=== PATIENT | male | born 1950 | race Caucasian/White ===

== ENCOUNTER 2018-05-07 22:55 | Emergency (ER) | payer OTHER ==
[2018-05-07 23:27] VITALS: TEMP 97.6; BMI 23.3
--- NOTE | 2018-05-07 23:43 | PDOC ---
History of Present Illness - General Chief Complaint: CVA/TIA Stated Complaint: INTOXICATION Time Seen by Provider: 05/07/18 23:43 - History of Present Illness Initial Comments: 67 year old male with history of depression and essential tremor presenting with slurred speech after a few glasses of wine and 8 ounces of alexander. However patient's is concerned that his speech was slurred to a point that she hasn 't seen before and was worried that he was having a stroke. His last known normal was 22:00 on 05/07 and a code dewey was called when he came in. NIH stroke scale of 1 because of slurred speech. Patient denied any recent fevers, chills, nausea, vomiting, diarrhea, or other symptoms. He has no cardiac history or history of blood clots. 05/08/18 00:26 NIH Stroke Scale - Last Known Well Date/Time & Onset Date Last Known Well: 05/07/18 Time Last Known Well: 21:59 - Initial Evaluation Level of consciousness: Alert Ask patient the month and their age: Answers both correctly Ask patient to open & close eyes; make fist and let go: Obeys both correctly Best gaze (horizontal eye movement): Normal Visual field testing: No visual field loss Facial paresis (Show teeth/raise eyebrows/close eyes tight): Normal symmetrical movement Motor Function: Left Arm: Normal Motor Function: Right Arm: Normal (extends arm 90 (or 45) degrees for 10 seconds without drift Motor Function: Left Leg: Normal (extends leg 30 degrees for 5 seconds without drift) Motor Function: Right Leg: Normal (extends leg 30 degrees for 5 seconds without drift) Limb Ataxia: No ataxia Sensory(Use pinprick test arms,legs,trunk,face/side to side): Normal Best language (Describe picture, name items, read sentences): No Aphasia Dysarthria (read several words): Mild to moderate slurring of words Extinction and Inattention: No abnormality - Total Score NIH Stroke Scale Score: 1 Past History - Past Medical History Allergies/Adverse Reactions: Allergies Allergy/AdvReac Type Severity Reaction Status Date / Time No Known Allergies Allergy Verified 05/08/18 00:42 Home Medications: Ambulatory Orders Escitalopram Oxalate [Lexapro -] 10 mg PO DAILY 05/08/18 Gabapentin 600 mg PO DAILY 05/08/18 Cardiac Disorders: No CVA: No COPD: No DVT: No Dementia: No - Surgical History Gastric Stapling: No - Suicide/Smoking/Psychosocial Hx Smoking History: Never smoked Hx Alcohol Use: Yes Drug/Substance Use Hx: No Substance Use Type: Alcohol Review of Systems - Review of Systems Constitutional: No: Chills, Diaphoresis, Fever, Loss of Appetite HEENTM: No: Eye Pain, Blurred Vision, Tearing Respiratory: No: Cough, Orthopnea, Shortness of Breath Cardiac (ROS): No: Chest Pain, Edema, Irregular Heart Rate ABD/GI: No: Constipated, Diarrhea, Nausea, Poor Appetite, Vomiting : No: Burning, Dysuria, Discharge Musculoskeletal: No: Back Pain, Gout, Joint Pain Integumentary: No: Lesions, Lumps, Pallor Neurological: Yes: Tremors. No: Headache, Numbness, Tingling, Weakness Psychiatric: Yes: Depression. No: Anxiety Hematologic/Lymphatic: No: Anemia, Blood Clots, Easy Bleeding *Physical Exam - Vital Signs Last Vital Signs Temp Pulse Resp BP Pulse Ox 97.6 F 57 L 20 135/80 95 05/07/18 23:19 05/07/18 23:19 05/07/18 23:19 05/07/18 23:19 05/07/18 23:19 - Physical Exam General Appearance: Yes: Nourished, Appropriately Dressed, Intoxicated. No: Apparent Distress HEENT: positive: EOMI, MELANIE, Normal ENT Inspection. negative: Normal Voice ( slightyl slurred speech) Neck: positive: Trachea midline, Normal Thyroid, Supple. negative: Tender, Rigid Respiratory/Chest: positive: Lungs Clear, Normal Breath Sounds. negative: Chest Tender, Respiratory Distress, Accessory Muscle Use Cardiovascular: positive: Regular Rhythm, Regular Rate Gastrointestinal/Abdominal: positive: Normal Bowel Sounds, Flat, Soft. negative : Tender Lymphatic: negative: Adenopathy Musculoskeletal: positive: Normal Inspection. negative: CVA Tenderness Extremity: positive: Normal Capillary Refill, Normal Inspection, Normal Range of Motion. negative: Tender Integumentary: positive: Normal Color, Dry, Warm Neurologic: positive: stator tester II-XII NML intact, Fully Oriented, Alert, Normal Mood/ Affect, Normal Response, Motor Strength 5/5 ED Treatment Course - LABORATORY CBC & Chemistry Diagram: 05/08/18 00:26 05/08/18 00:26 Medical Decision Making - Medical Decision Making 67 year male with slurred speech and NIHSS 1. Head Ct negative and labs demonstrating intoxication with EToh level of 170. Patient given I l NS and eventually sobered after a few hours of observation. DC'd to care of with strict return precautions and follow up instructions. 05/08/18 07:24 *DC/Admit/Observation/Transfer Diagnosis at time of Disposition: Slurred speech, Intoxication - Discharge Dispostion Disposition: HOME Condition at time of disposition: Improved Decision to Admit order: No - Referrals Referrals: Walter Gonzalez [Primary Care Provider] - - Patient Instructions Printed Discharge Instructions: DI for Alcohol Abuse Additional Instructions: Please avoid alcohol with your antidepressants. Please follow up with your primary care physician within 2-3 days. Please return to our ED if you begin to slur your speech again, have any weakness in any of your limbs, have any numbness or tingling in your arms or legs or any other symptoms. - Post Discharge Activity
--- NOTE | 2018-05-07 23:49 | PDOC ---
Attending Attestation - Resident Resident Name: Deuce Quiñonez - ED Attending Attestation I have performed the following: I have examined & evaluated the patient, The case was reviewed & discussed with the resident, I agree w/resident's findings & plan - HPI HPI: 05/08/18 00:31 Pt is depressed; long hx of depression - he is in therapy and has physicains and he has been afraid to sleep, and mikayla by drinking before bedtime. recenly he has been making an effort to cut back drinking. Today he rebounded and drank more than usual. noted that he was slurring speech and he had unsteady gait and she called 911. - Physicial Exam PE: 05/08/18 00:32 Neuro exam shows only slurred speech. Pt follws commands and all else normal. He has downward babinskis. Reflexes depressed but equal throughout. 05/08/18 00:33 Agree with resident exam. - Medical Decision Making 05/08/18 00:33 CT labs; alcohol level. 05/08/18 01:22 EXAM: CT HEAD CT (STROKE) HISTORY: Stroke COMPARISON: None. FINDINGS: Brain parenchyma is normal in attenuation with no mass or hematoma. There is no midline shift. Garrett and white matter differentiation is normal. Ventricles are normal. Sulci and extra-axial CSF spaces are normal. Intracranial vascular structures are normal in attenuation. There is no calvarial fracture. Paranasal sinuses are normally aerated. IMPRESSION: Normal head Individualized dose optimization techniques were used for this CT. THIS DOCUMENT HAS BEEN ELECTRONICALLY SIGNED 05/08/18 01:40 Pt's cardiac profile is normal. Pt will hydrate and he will be discharged once he receives the bolus
[2018-05-08] MEDS ORDERED: SODIUM CHLORIDE 1,000 ML IV SCH (00:15)
--- NOTE | 2018-05-08 00:18 | PDOC ---
NIH Stroke Scale - Last Known Well Date/Time & Onset Date Last Known Well: 05/07/18 Time Last Known Well: 21:30 - Initial Evaluation Level of consciousness: Alert Ask patient the month and their age: Answers both correctly Ask patient to open & close eyes; make fist and let go: Obeys both correctly Best gaze (horizontal eye movement): Normal Visual field testing: No visual field loss Facial paresis (Show teeth/raise eyebrows/close eyes tight): Normal symmetrical movement Motor Function: Left Arm: Normal Motor Function: Right Arm: Normal (extends arm 90 (or 45) degrees for 10 seconds without drift Motor Function: Left Leg: Normal (extends leg 30 degrees for 5 seconds without drift) Motor Function: Right Leg: Normal (extends leg 30 degrees for 5 seconds without drift) Limb Ataxia: No ataxia Sensory(Use pinprick test arms,legs,trunk,face/side to side): Normal Best language (Describe picture, name items, read sentences): Mild to moderate aphasia (pt drank 2 glasses of wine and 8oz alexander) Dysarthria (read several words): Mild to moderate slurring of words (Pt drank 2 glasses of wine and 8 oz of alexander) Extinction and Inattention: No abnormality - Total Score NIH Stroke Scale Score: 2
[2018-05-08 00:42] LABS: BASO % 0.7 % (0-2.0); EOS % 5.7 % (0-4.5); HEMATOCRIT 40.4 % (35.4-49); HEMOGLOBIN 13.9 GM/dL (11.7-16.9); LYMPH % 36.1 % (8-40); MCH 33.1 pg (25.7-33.7); MCHC 34.4 g/dl (32.0-35.9); MEAN CELL VOLUME 96.1 fl (80-96); MEAN PLT VOLUME 7.4 fl (7.5-11.1); MONO % 8.9 % (3.8-10.2); NEUT % 48.6 % (42.8-82.8); PLATELET COUNT 262 K/MM3 (134-434); WHITE BLOOD COUNT 5.6 K/mm3 (4.0-10.0)
[2018-05-08 00:55] LABS: INR 1.03 (0.83-1.09); PROTHROMBIN TIME (PATIENT) 11.6 SEC (9.7-13.0)
[2018-05-08 01:05] LABS: ALBUMIN 3.9 g/dl (3.4-5.0); ALK PHOS 89 U/L (45-117); ANION GAP 8 MMOL/L (8-16); BILIRUBIN,TOTAL 0.2 mg/dL (0.2-1); BLOOD UREA NITROGEN 17 mg/dL (7-18); CALCIUM 8.7 mg/dL (8.5-10.1); CHLORIDE 104 mmol/L (98-107); CHOLESTEROL 177 mg/dL (50-200); CO2 28 mmol/L (21-32); CREATININE 1.1 mg/dL (0.55-1.3); GLUCOSE,RANDOM 100 mg/dL (74-106); HDL CHOLESTEROL 94 mg/dL (40-60); POTASSIUM 4.2 mmol/L (3.5-5.1); SGOT/AST 34 U/L (15-37); SGPT/ALT 32 U/L (13-61); SODIUM 139 mmol/L (136-145); TOT PROT 7.3 g/dl (6.4-8.2); TRIGLYCERIDES 113 mg/dL (0-150)
[2018-05-08 03:16] VITALS: BP 104/64; PULSE 63
--- NOTE | 2018-05-08 09:44 | CON.NEURO ---
Consult Consult Specialty:: Corey Referred by:: ER Reason for Consultation:: Slurred speech - History of Present Illness History of Present Illness: 67 years old man with slurred speech - History Source History Provided By: Medical Record Limitations to Obtaining History: No Limitations - Alcohol/Substance Use Hx Alcohol Use: Yes - Smoking History Smoking history: Never smoked Home Medications - Allergies Allergies/Adverse Reactions: Allergies Allergy/AdvReac Type Severity Reaction Status Date / Time No Known Allergies Allergy Verified 05/08/18 00:42 - Home Medications Home Medications: Ambulatory Orders Escitalopram Oxalate [Lexapro -] 10 mg PO DAILY 05/08/18 Gabapentin 600 mg PO DAILY 05/08/18 Family Disease History - Family Disease History Family History: Denies (CVA) Review of Systems - Review of Systems Constitutional: reports: No Symptoms Eyes: reports: No Symptoms Physical Exam-Neuro Vital Signs: Vital Signs Temperature 97.6 F 05/07/18 23:19 Pulse Rate 63 05/08/18 03:10 Respiratory Rate 13 05/08/18 03:10 Blood Pressure 104/64 05/08/18 03:10 O2 Sat by Pulse Oximetry (%) 93 L 05/08/18 03:10 Constitutional: Yes: Well Nourished Neck: Yes: WNL Cardiovascular: Yes: WNL Labs: CBC, BMP 05/08/18 00:26 05/08/18 00:26 INR, PTT INR 1.03 (0.83-1.09) 05/08/18 00:26 - Neuro Exam Level Of Consciousness: Yes: Oriented to Person, Oriented to Place, Oriented to Time Eyes: Yes: PERRLA Speech: WNL Imaging - Results Cat Scan: Image Reviewed Problem List - Problems (1) Slurred speech Assessment/Plan: ?? left frontal lacunar CVA not seen on Head CT 1. Neuro check 2. ASA Antiplatelet 3. Fall precautions 4, Am lipid 5. PT 5. Dysphagia protocol 6. Statin 7. Echo 8. Stroke education: weight loss and smoking cessation 9. SCDs units 10. MRI of the brain with no Gregory I thank you for getting me involved in this patient neurological care Thank you Code(s): R47.81 - SLURRED SPEECH
[2018-05-08] MEDS ORDERED: ASPIRIN 325 MG TABLET PO SCH (10:00)
--- NOTE | 2018-05-08 12:07 | EKG ---
Test Reason : Blood Pressure : / mmHG Vent. Rate : 060 BPM Atrial Rate : 060 BPM P-R Int : 206 ms QRS Dur : 114 ms QT Int : 456 ms P-R-T Axes : 064 -47 -01 degrees QTc Int : 456 ms NORMAL SINUS RHYTHM POSSIBLE LEFT ATRIAL ENLARGEMENT INCOMPLETE RIGHT BUNDLE BRANCH BLOCK LEFT ANTERIOR FASCICULAR BLOCK SEPTAL INFARCT , AGE UNDETERMINED ABNORMAL ECG NO PREVIOUS ECGS AVAILABLE Confirmed by ITALO VALERO MD ([id number]) on 05/08/2018 12:07:07 PM Referred By: Confirmed By:ITALO VALERO MD
[2018-05-08] MEDS ORDERED: ATORVASTATIN CA 20 MG TABLET (FP) PO SCH (22:00)
== END 2018-05-08 04:19 | disposition home or self-care (01) ==
LOC: JER 22:55
DX: F10.10 Alcohol abuse, uncomplicated (principal); Y90.6 Blood alcohol level of 120-199 mg/100 ml; F32.9 Major depressive disorder, single episode, unspecified
CPT/HCPCS: 36415; 70450-TC; 80053; 80307; 82465; 82550; 82553; 83036; 83718; 83721; 84478; 84484; 85025; 85610; 86850; 86900; 86901; 93005; 93010; 99285-25; J7030